=== PATIENT | male | born 1975 | race American Indian/Alaskan Native ===

== ENCOUNTER 2021-09-24 09:40 | Day surgery (SDC) | payer OTHER ==
[2021-09-24] MEDS ORDERED: ASPIRIN EC 325 MG TAB PO ONE (10:17)
[2021-09-24 10:42] LABS: Basophils # (Auto) 0.1 K/mm3 (0.0-0.1); Basophils % (Auto) 1.1 % (0.0-1.8); Eosinophils # (Auto) 0.2 K/mm3 (0.0-0.4); Eosinophils % (Auto) 3.2 % (0.0-4.3); Hematocrit 47.6 % (35.5-45.6); Hemoglobin 15.8 gm/dl (11.8-15.2); Lymphocytes # (Auto) 2.5 K/mm3 (1.2-5.4); Lymphocytes % (Auto) 39.2 % (13.4-35.0); Mean Corpuscular HGB Conc 33 % (32-34); Mean Corpuscular Volume 93 fl (84-94); Monocytes # (Auto) 0.7 K/mm3 (0.0-0.8); Monocytes % (Auto) 11.6 % (0.0-7.3); Platelet Count 270 K/mm3 (140-440); Red Blood Count 5.13 M/mm3 (3.65-5.03); Red Cell Distribution Width 13.9 % (13.2-15.2)
[2021-09-24 10:51] LABS: Partial Thromboplastin Time 25.3 Sec. (24.2-36.6)
[2021-09-24 10:58] LABS: BUN/Creatinine Ratio 14; Blood Urea Nitrogen 17 mg/dL (9-20); Calcium 9.3 mg/dL (8.4-10.2); Hemolysis Index 12
[2021-09-24] MEDS: SODIUM CHLORIDE 0.9% 500 ML 500 ML IV SCH ×2 (12:49→14:20)
[2021-09-24] MEDS ORDERED: fentaNYL 100 MCG/2 ML INJ ONE (13:56)
[2021-09-24] MEDS ORDERED: HEPARIN/NS 5000 UNIT/500ML 1,000 ML IR ONE (13:56)
[2021-09-24] MEDS ORDERED: MIDAZOLAM 2 MG/2 ML INJ ONE (13:56)
[2021-09-24] MEDS ORDERED: HEPARIN 10,000 UNITS/10 ML VIAL ONE (13:56)
[2021-09-24] MEDS ORDERED: LIDOCAINE (2%) 20 MG/1 ML VIAL 20 ML MDV INFILTRATI ONE (13:57)
[2021-09-24] MEDS ORDERED: VERAPAMIL 5 MG/2 ML INJ ONE (13:57)
[2021-09-24] MEDS ORDERED: NITROGLYCERIN SYRINGE 3 ML ONE (13:57)
[2021-09-24] MEDS ORDERED: traMADol 50 MG TAB PO PRN (14:47)
[2021-09-24] MEDS ORDERED: SODIUM CHLORIDE 0.9% 1000 ML 1,000 ML IV SCH (15:00)
[2021-09-24 17:39] VITALS: BP 143/96
== END 2021-09-24 18:20 | disposition home or self-care (01) ==
LOC: CATH 09:40 → CATHLABREC 09:40
PROVIDERS: ATTEND Internal Medicine Cardiovascular Disease
DX: I42.8 Other cardiomyopathies (principal); R94.31 Abnormal electrocardiogram [ECG] [EKG]; I48.92 Unspecified atrial flutter; I10 Essential (primary) hypertension; G47.30 Sleep apnea, unspecified; K21.9 Gastro-esophageal reflux disease without esophagitis; E11.9 Type 2 diabetes mellitus without complications; E78.5 Hyperlipidemia, unspecified; E66.9 Obesity, unspecified; F17.210 Nicotine dependence, cigarettes, uncomplicated; Z79.899 Other long term (current) drug therapy; Z98.890 Other specified postprocedural states; Z68.42 Body mass index [BMI] 45.0-49.9, adult
CPT/HCPCS: 36415; 80048; 85025; 85610; 85730; 93005; 93010; 93454; C1894; J1644; J1815; J2250; J3010; J3490; J7040; 93458; Q9967